=== PATIENT | male | born 1965 | race Hispanic/Latino ===

== ENCOUNTER 2017-08-16 17:35 | Emergency (ER) | payer OTHER ==
[~2017-08-16] VITALS: Ht 175.3 cm; Wt 108.9 kg
[~2017-08-16 17:35] MED LIST: NORCO 5-325 TA1 EACH PO; NOVOLOG FL100 UNIT/1
== END 2017-08-16 19:39 | disposition home or self-care (01) ==
LOC: ED 17:35
DX: M10.9 Gout, unspecified (principal); E11.9 Type 2 diabetes mellitus without complications; F17.200 Nicotine dependence, unspecified, uncomplicated; Z90.81 Acquired absence of spleen
CPT/HCPCS: 99282

== ENCOUNTER 2019-07-19 14:45 | Emergency (ER) | payer OTHER ==
[~2019-07-19] VITALS: Ht 175.3 cm; Wt 108.9 kg
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
[2019-07-19] MEDS ORDERED: VITAMIN D2000 UNIT PO (15:01)
[2019-07-19] MEDS ORDERED: INDOMETHACIN50 MG PO (15:10)
[2019-07-19] MEDS ORDERED: COLCHICINE0.6 M1 PO (15:10)
== END 2019-07-19 15:25 | disposition home or self-care (01) ==
LOC: ED 14:45
DX: M10.9 Gout, unspecified (principal); E11.9 Type 2 diabetes mellitus without complications
CPT/HCPCS: 99283